=== PATIENT | male | born 1950 | race African-American/Black ===

== ENCOUNTER 2020-10-01 11:32 | Observation (INO) | payer MEDICARE ==
[2020-10-01 12:02] LABS: #Basophils 0.1 thou/uL (0.0-0.2); #Eosinphils 0.2 thou/uL (0.0-0.7); #Lymphocytes 1.4 thou/uL (1.20-3.40); #Monocytes 0.5 thou/uL (0.11-0.59); #Neutrophils 3.3 thou/uL (1.40-6.50); %Basophils 1.3 % (0.0-1.0); %Eosinophils 3.6 % (0.0-10.0); %Lymphocytes 25.5 % (21.0-51.0); %Monocytes 9.3 % (0.0-10.0); %Neutrophils 60.3 % (42.0-75.0); Hemoglobin 14.3 g/dL (14.0-18.0); Mean Corpuscular HGB CONC 33.1 g/dL (32.0-36.0); Mean Corpuscular Hemoglobin 27.9 pg (27.0-31.0); Mean Corpuscular Volume 84.3 fL (78.0-98.0); Mean Platelet Volume 9.1 fL (7.4-10.4); Platelet Count 186 thou/uL (130-400); RBC Distribution Width 12.1 % (11.5-14.5); Red Blood Cell (RBC) Count 5.12 mill/uL (4.70-6.10); White Blood Cell (WBC) Count 5.5 thou/uL (4.8-10.8)
[2020-10-01 12:23] LABS: ALT (SGPT) Less than 7 U/L (8-55); AST (SGOT) 14 U/L (5-34); Alkaline Phosphatase 79 U/L (40-110); Anion Gap 11 mmol/L (10-20); BUN (Urea Nitrogen) 10 mg/dL (8.4-25.7); Bilirubin, Total 0.7 mg/dL (0.2-1.2); Calc. Creatinine Clearance 0 mL/min (70-130); Calcium 9.2 mg/dL (7.8-10.44); Carbon Dioxide 30 mmol/L (23-31); Chloride 101 mmol/L (98-107); Globulin 3.8 g/dL (2.4-3.5); Glucose 134 mg/dL (80-115); Potassium 3.5 mmol/L (3.5-5.1); Protein, Total 7.8 g/dL (5.8-8.1)
[2020-10-01 12:25] LABS: Sodium 138 mmol/L (136-145)
[2020-10-01] MEDS ORDERED: Nitroglycerin 2% Ointment 1 INCH/1 GM Packet ONE (13:02)
[2020-10-01] MEDS ORDERED: Furosemide 20 MG/2 ML VIAL ONE (14:22)
[2020-10-01 15:11] LABS: Bacteria/HPF None Seen HPF (None Seen); Bilirubin Negative (Negative); Blood, Urine Negative (Negative); Clarity Clear (Clear); Glucose, Urine (Dipstick) 50 mg/dL (Negative); Ketone, Urine Negative (Negative); Leukocyte Negative Leu/uL (Negative); Nitrite Negative (Negative); Protein, Urine (Dipstick) 30 mg/dL (Neg-Trace); RBC/HPF 0-3 HPF (0-3); Specific Gravity, Urine 1.012 (1.002-1.036); Squamous Epithelial None Seen HPF (0-3); WBC/HPF 0-3 HPF (0-3); pH, Urine 7.5 (5.0-9.0)
[2020-10-01 15:15] LABS: Amphetamine Not Detected (NotDetected); Barbiturates Screen Not Detected (NotDetected); Benzodiazepine Screen Not Detected (NotDetected); Cocaine Metabolite Screen Not Detected (NotDetected); Medtox Control Line Valid? VALID (VALID); Medtox Reader # READER 4; Methadone Not Detected (NotDetected); Methamphetamine Not Detected (NotDetected); Opiate Screen Not Detected (NotDetected); Oxycodone Screen Not Detected (NotDetected); Phencyclidine (PCP) Not Detected (NotDetected); THC/Cannabinoid Screen Not Detected (NotDetected); Tricyclic Screen Not Detected (NotDetected)
[2020-10-01] MEDS ORDERED: Senokot S 8.6-50 MG TAB PO PRN (15:15)
[2020-10-01] MEDS ORDERED: Ondansetron ODT 4 MG TAB PO PRN (15:15)
[2020-10-01] MEDS ORDERED: Loperamide HCl 2 MG CAP PO PRN (15:15)
[2020-10-01] MEDS ORDERED: HYDROcodone/Acetaminophen 5/325 mg Tablet PO PRN (15:15)
[2020-10-01] MEDS ORDERED: Calcium Carbonate 500 MG ChewTAB PO PRN (15:15)
[2020-10-01] MEDS ORDERED: Acetaminophen 325 MG TAB PO PRN (15:15)
[2020-10-01] MEDS ORDERED: Ondansetron PF 4 MG/2 ML Vial IVP PRN (15:15)
[2020-10-01] MEDS ORDERED: Bisacodyl 10 MG SUPP PR PRN (15:15)
[2020-10-01] MEDS ORDERED: Zolpidem Tartrate 5 MG TAB PO PRN (15:15)
[2020-10-01] MEDS ORDERED: Guaifenesin DM 100-10/5 ML UDCUP PO PRN (15:15)
[2020-10-01] MEDS ORDERED: Loratadine 10 MG TAB PO PRN (15:18)
[2020-10-01] MEDS ORDERED: Cepastat Lozenges 1 LOZ PO PRN (15:18)
[2020-10-01] MEDS ORDERED: Sodium Chloride 0.65% Nasal 44 ML BOT EA NARE PRN (15:18)
[2020-10-01] MEDS: hydrALAZINE 20 MG/ML VIAL SLOW IVP PRN (17:29)
[2020-10-01] MEDS: Carvedilol 25 MG TAB PO SCH (17:29)
[2020-10-01 17:44] VITALS: BMI 26.4
[2020-10-01] MEDS: Famotidine 20 MG TAB PO SCH (20:30)
[2020-10-01 21:18] LABS: Troponin I 0.022 ng/mL (< 0.028)
[2020-10-02 01:51] LABS: SARS-CoV-2 PCR by NAA Not Detected (NotDetected)
[2020-10-02 04:43] LABS: #Eosinphils 0.2 thou/uL (0.0-0.7); #Lymphocytes 1.4 thou/uL (1.20-3.40); #Monocytes 0.7 thou/uL (0.11-0.59); #Neutrophils 3.7 thou/uL (1.40-6.50); %Basophils 0.4 % (0.0-1.0); %Eosinophils 2.6 % (0.0-10.0); %Lymphocytes 22.7 % (21.0-51.0); %Monocytes 11.5 % (0.0-10.0); %Neutrophils 62.7 % (42.0-75.0); Hemoglobin 13.2 g/dL (14.0-18.0); Mean Corpuscular HGB CONC 32.7 g/dL (32.0-36.0); Mean Corpuscular Hemoglobin 27.4 pg (27.0-31.0); Mean Corpuscular Volume 83.6 fL (78.0-98.0); Platelet Count 181 thou/uL (130-400); Red Blood Cell (RBC) Count 4.84 mill/uL (4.70-6.10)
[2020-10-02 04:46] LABS: Hemoglobin A1c 6.6 % (4.0-6.0)
[2020-10-02 05:09] LABS: Anion Gap 14 mmol/L (10-20); BUN (Urea Nitrogen) 12 mg/dL (8.4-25.7); Calc. Creatinine Clearance 76 mL/min (70-130); Calcium 8.9 mg/dL (7.8-10.44); Carbon Dioxide 24 mmol/L (23-31); Cardiac Risk 4.9 (Less than 4.5); Chloride 103 mmol/L (98-107); Cholesterol 225 mg/dl (< 200 Desired); Glucose 106 mg/dL (80-115); HDL Cholesterol 46 mg/dL (>60 Neg Risk); LDL Cholesterol, Calculated 167 mg/dL; Potassium 3.2 mmol/L (3.5-5.1); Sodium 138 mmol/L (136-145); Triglycerides 60 mg/dL (Less than 150)
[2020-10-02] MEDS: Carvedilol 25 MG TAB PO SCH ×2 (08:58→16:21)
[2020-10-02] MEDS: Famotidine 20 MG TAB PO SCH (08:58)
[2020-10-02] MEDS ORDERED: NIFEdipine XL 60 MG TAB PO SCH (09:00)
[2020-10-02] MEDS ORDERED: Losartan 25 MG TAB PO SCH (13:00)
[2020-10-02 15:20] VITALS: TEMP 98.1
[2020-10-02] MEDS: hydrALAZINE 20 MG/ML VIAL SLOW IVP PRN (15:28)
[2020-10-02 16:11] VITALS: BP 158/77
== END 2020-10-02 16:40 | disposition home or self-care (01) ==
LOC: ERS 11:32 → 2NO 14:33
PROVIDERS: ADMIT Internal Medicine; ATTEND Internal Medicine
DX: I16.0 Hypertensive urgency (principal); I11.0 Hypertensive heart disease with heart failure; I50.9 Heart failure, unspecified; E78.00 Pure hypercholesterolemia, unspecified; E11.9 Type 2 diabetes mellitus without complications; R79.89 Other specified abnormal findings of blood chemistry; I77.810 Thoracic aortic ectasia; Z91.14 Patient's other noncompliance with medication regimen; Z79.899 Other long term (current) drug therapy; Z20.822 Contact with and (suspected) exposure to COVID-19; R60.0 Localized edema; M79.89 Other specified soft tissue disorders
CPT/HCPCS: 71045; 80048; 80053; 80061; 80306; 82962 ×2; 83036; 83880; 84443; 84484 ×2; 85025 ×2; 93005; 93971; 96374; 96375; 96376; 99285; G0378 ×3; U0003; U0005; 36415; 36416; 81003; 81015; 87635; J0360; J1940

== ENCOUNTER 2022-01-14 11:27 | Inpatient (IN) | payer MEDICARE, MEDICAID ==
[2022-01-14 13:02] LABS: #Eosinphils 0.3 thou/uL (0.0-0.7); #Lymphocytes 1.3 thou/uL (1.20-3.40); #Monocytes 0.8 thou/uL (0.11-0.59); #Neutrophils 4.5 thou/uL (1.40-6.50); %Basophils 0.3 % (0.0-1.0); %Lymphocytes 18.6 % (21.0-51.0); %Monocytes 11.5 % (0.0-10.0); %Neutrophils 64.7 % (42.0-75.0); Hemoglobin 10.6 g/dL (14.0-18.0); Mean Corpuscular HGB CONC 31.6 g/dL (32.0-36.0); Mean Corpuscular Hemoglobin 29.3 pg (27.0-31.0); Mean Corpuscular Volume 92.8 fL (78.0-98.0); Mean Platelet Volume 8.6 fL (7.4-10.4); Platelet Count 167 thou/uL (130-400); White Blood Cell (WBC) Count 6.9 thou/uL (4.8-10.8)
[2022-01-14 14:33] LABS: ALT (SGPT) 8 U/L (8-55); AST (SGOT) 11 U/L (5-34); Albumin 3.7 g/dL (3.4-4.8); Alkaline Phosphatase 56 U/L (40-110); Anion Gap 15 mmol/L (10-20); BUN (Urea Nitrogen) 11 mg/dL (8.4-25.7); Bilirubin, Total 0.4 mg/dL (0.2-1.2); Calc. Creatinine Clearance 0 mL/min (70-130); Calcium 9.2 mg/dL (7.8-10.44); Carbon Dioxide 21 mmol/L (23-31); Chloride 107 mmol/L (98-107); Estimated GFR 62; Globulin 3.2 g/dL (2.4-3.5); Glucose 257 mg/dL (80-115); Potassium 3.1 mmol/L (3.5-5.1); Protein, Total 6.9 g/dL (5.8-8.1); Sodium 140 mmol/L (136-145)
[2022-01-14] MEDS ORDERED: Aspirin Chewable 81 MG TAB ONE ×2 (14:55→15:03)
[2022-01-14] MEDS ORDERED: Ondansetron ODT 4 MG TAB PO PRN (17:11)
[2022-01-14] MEDS ORDERED: Acetaminophen 325 MG TAB PO PRN (17:11)
[2022-01-14] MEDS ORDERED: Ondansetron PF 4 MG/2 ML Vial IVP PRN (17:11)
[2022-01-14] MEDS ORDERED: Enoxaparin Sodium 40 MG/0.4 ML SYRINGE SC SCH (17:15)
[2022-01-14] MEDS ORDERED: Dextrose 5% in Water 1,000 ML IV PRN (17:50)
[2022-01-14] MEDS ORDERED: Dextrose 50% Abboject 50 ML SYRINGE SLOW IVP PRN (17:50)
[2022-01-14] MEDS ORDERED: Insulin Regular 300 UNITS/3 ML VIAL SC PRN (17:50)
[2022-01-14] MEDS ORDERED: Enoxaparin Sodium 40 MG/0.4 ML SYRINGE ONE (17:55)
[2022-01-14] MEDS: Lactated Ringer's 1,000 ML IV SCH (18:26)
[2022-01-14] MEDS: Potassium Chloride 20 MEQ in Premix Bag 1 BAG IVPB SCH (23:50)
[2022-01-14] MEDS: Famotidine 20 MG TAB PO SCH (23:50)
[2022-01-15 00:21] VITALS: BMI 20.7
[2022-01-15 01:53] LABS: Bilirubin Negative (Negative); Blood, Urine Trace (Negative); Clarity Turbid (Clear); Glucose, Urine (Dipstick) Normal (Negative); Ketone, Urine Negative (Negative); Leukocyte 500 Leu/uL (Negative); Nitrite Negative (Negative); Protein, Urine (Dipstick) 20 mg/dL (Neg-Trace); Specific Gravity, Urine 1.011 (1.002-1.036); Squamous Epithelial 0-3 HPF (0-3); WBC/HPF Greater than 50 HPF (0-3)
[2022-01-15 01:54] LABS: Bacteria/HPF 1+ HPF (None Seen)
[2022-01-15] MEDS: Potassium Chloride 20 MEQ in Premix Bag 1 BAG IVPB SCH (02:08)
[2022-01-15 05:41] LABS: Hemoglobin A1c 5.7 % (4.0-6.0)
[2022-01-15 05:57] LABS: ALT (SGPT) 7 U/L (8-55); AST (SGOT) 11 U/L (5-34); Albumin 3.5 g/dL (3.4-4.8); Alkaline Phosphatase 55 U/L (40-110); Anion Gap 12 mmol/L (10-20); BUN (Urea Nitrogen) 11 mg/dL (8.4-25.7); Bilirubin, Total 0.7 mg/dL (0.2-1.2); Calc. Creatinine Clearance 70 mL/min (70-130); Calcium 9.2 mg/dL (7.8-10.44); Carbon Dioxide 24 mmol/L (23-31); Cardiac Risk 3.1 (Less than 4.5); Chloride 109 mmol/L (98-107); Cholesterol 114 mg/dl (< 200 Desired); Estimated GFR 83; Globulin 3.1 g/dL (2.4-3.5); Glucose 92 mg/dL (80-115); HDL Cholesterol 37 mg/dL (>60 Neg Risk); Iron 49 ug/dL (65-175); Iron Binding Capacity, Total 171 mcg/dL (261-462); LDL Cholesterol, Calculated 67 mg/dL; Potassium 3.4 mmol/L (3.5-5.1); Protein, Total 6.6 g/dL (5.8-8.1); Sodium 142 mmol/L (136-145); Triglycerides 52 mg/dL (Less than 150)
[2022-01-15 05:59] LABS: Iron 48 ug/dL (65-175); Iron Binding Capacity, Total 171 mcg/dL (261-462)
[2022-01-15 06:17] LABS: Ferritin 658.06 ng/mL (22-322); Thyroid Stimulating Hormone 0.7341 uIU/mL (0.35-4.94)
[2022-01-15 06:20] LABS: #Eosinphils 0.4 thou/uL (0.0-0.7); #Lymphocytes 1.6 thou/uL (1.20-3.40); #Monocytes 0.8 thou/uL (0.11-0.59); %Basophils 1.1 % (0.0-1.0); %Lymphocytes 23.3 % (21.0-51.0); %Monocytes 10.1 % (0.0-10.0); %Neutrophils 58.3 % (42.0-75.0); Hemoglobin 10.6 g/dL (14.0-18.0); Mean Corpuscular HGB CONC 33.1 g/dL (32.0-36.0); Mean Corpuscular Hemoglobin 29.8 pg (27.0-31.0); Mean Corpuscular Volume 89.8 fL (78.0-98.0); Mean Platelet Volume 8.6 fL (7.4-10.4); Platelet Count 168 thou/uL (130-400); RBC Distribution Width 11.9 % (11.5-14.5); Red Blood Cell (RBC) Count 3.55 mill/uL (4.70-6.10)
[2022-01-15] MEDS: Lactated Ringer's 1,000 ML IV SCH (08:21)
[2022-01-15] MEDS ORDERED: Aspirin 300 MG Suppository PR SCH (09:00)
[2022-01-15] MEDS: Famotidine 20 MG TAB PO SCH (09:18)
[2022-01-15] MEDS ORDERED: Potassium Chloride 20 MEQ TAB PO SCH (12:30)
[2022-01-15] MEDS ORDERED: Multivitamin W/ Minerals 1 TAB PO SCH (14:15)
[2022-01-15] MEDS: hydrALAZINE 25 MG TAB PO SCH ×2 (15:11→21:09)
[2022-01-15] MEDS: Megestrol Acetate 40 MG TAB PO SCH ×2 (15:12→21:09)
[2022-01-15] MEDS: Ferrous Sulfate 325 MG TAB PO SCH (17:47)
[2022-01-15] MEDS: HumaLOG 300 UNITS/3 ML VIAL SC PRN (17:47)
[2022-01-15] MEDS ORDERED: Non-Formulary Item 1 EACH (Levetiracetam [Keppra] 250 MG Tab) PO SCH (21:00)
[2022-01-15] MEDS ORDERED: Non-Formulary Item 1 EACH (Quetiapine Fumarate [Seroquel] 50 MG Tablet) PO SCH (21:00)
[2022-01-15] MEDS: traZODone HCl 50 MG TAB PO SCH (21:08)
[2022-01-15] MEDS: levETIRAcetam 500 MG TAB PO SCH (21:09)
[2022-01-16] MEDS ORDERED: glipiZIDE 5 MG TAB PO SCH (07:30)
[2022-01-16] MEDS: levETIRAcetam 500 MG TAB PO SCH ×2 (08:42→21:47)
[2022-01-16] MEDS: Atorvastatin Calcium 40 MG TAB PO SCH (08:43)
[2022-01-16] MEDS: hydrALAZINE 25 MG TAB PO SCH ×3 (08:43→21:48)
[2022-01-16] MEDS: Citalopram 20 MG TAB PO SCH (08:43)
[2022-01-16] MEDS: Multivitamin W/ Minerals 1 TAB PO SCH (08:43)
[2022-01-16] MEDS: Furosemide 20 MG TAB PO SCH (08:43)
[2022-01-16] MEDS: Lisinopril 20 MG TAB PO SCH (08:44)
[2022-01-16] MEDS: NIFEdipine XL 90 MG TAB PO SCH (08:44)
[2022-01-16] MEDS: Megestrol Acetate 40 MG TAB PO SCH ×3 (08:44→21:47)
[2022-01-16] MEDS: Folic Acid 1 MG TAB PO SCH (08:45)
[2022-01-16] MEDS: Donepezil HCl 10 MG TAB PO SCH (08:45)
[2022-01-16] MEDS: Aspirin Chewable 81 MG TAB PO SCH (08:45)
[2022-01-16] MEDS: Alogliptin 25 MG TAB PO SCH (08:45)
[2022-01-16] MEDS ORDERED: Lisinopril 20 MG TAB PO SCH (09:00)
[2022-01-16] MEDS ORDERED: NIFEdipine XL 90 MG TAB PO SCH (09:00)
[2022-01-16] MEDS ORDERED: Non-Formulary Item 1 EACH (Lisinopril [Lisinopril] 40 MG Tablet) PO SCH (09:00)
[2022-01-16] MEDS ORDERED: DONEPEZIL HCL 10 MG PO SCH (09:00)
[2022-01-16] MEDS ORDERED: Non-Formulary Item 1 EACH (Linagliptin [Tradjenta] 5 MG Tablet) PO SCH (09:00)
[2022-01-16] MEDS: Enoxaparin Sodium 40 MG/0.4 ML SYRINGE SC SCH (10:15)
[2022-01-16] MEDS ORDERED: cefTRIAXone\\ROCEPHIN 1 GM in Sodium Chloride 0.9% 100 ML IVPB SCH (12:00)
[2022-01-16] MEDS: HumaLOG 300 UNITS/3 ML VIAL SC PRN (13:18)
[2022-01-16] MEDS: traZODone HCl 50 MG TAB PO SCH (21:46)
[2022-01-17 07:22] LABS: Anion Gap 12 mmol/L (10-20); BUN (Urea Nitrogen) 9 mg/dL (8.4-25.7); Calc. Creatinine Clearance 76 mL/min (70-130); Calcium 8.4 mg/dL (7.8-10.44); Carbon Dioxide 24 mmol/L (23-31); Chloride 107 mmol/L (98-107); Estimated GFR 92; Glucose 87 mg/dL (80-115); Potassium 3.3 mmol/L (3.5-5.1); Sodium 140 mmol/L (136-145)
[2022-01-17] MEDS ORDERED: Potassium Chloride 20 MEQ TAB PO SCH (08:15)
[2022-01-17] MEDS: Enoxaparin Sodium 40 MG/0.4 ML SYRINGE SC SCH (08:44)
[2022-01-17] MEDS: levETIRAcetam 500 MG TAB PO SCH ×2 (08:44→21:47)
[2022-01-17] MEDS: Donepezil HCl 10 MG TAB PO SCH (08:45)
[2022-01-17] MEDS: Multivitamin W/ Minerals 1 TAB PO SCH (08:45)
[2022-01-17] MEDS: Atorvastatin Calcium 40 MG TAB PO SCH (08:45)
[2022-01-17] MEDS: Lisinopril 20 MG TAB PO SCH (08:45)
[2022-01-17] MEDS: Aspirin Chewable 81 MG TAB PO SCH (08:45)
[2022-01-17] MEDS: Folic Acid 1 MG TAB PO SCH (08:45)
[2022-01-17] MEDS: Megestrol Acetate 40 MG TAB PO SCH ×3 (08:45→21:50)
[2022-01-17] MEDS: Furosemide 20 MG TAB PO SCH (08:45)
[2022-01-17] MEDS: NIFEdipine XL 90 MG TAB PO SCH (08:46)
[2022-01-17] MEDS: Alogliptin 25 MG TAB PO SCH (08:46)
[2022-01-17] MEDS: Citalopram 20 MG TAB PO SCH (08:46)
[2022-01-17] MEDS: hydrALAZINE 25 MG TAB PO SCH ×3 (08:47→21:47)
[2022-01-17] MEDS ORDERED: Iopamidol-370 76% 500 ML 1 ML ONE (13:43)
[2022-01-17] MEDS: cefTRIAXone\\ROCEPHIN 1 GM in Sodium Chloride 0.9% 100 ML IVPB SCH (16:47)
[2022-01-17] MEDS: Ferrous Sulfate 325 MG TAB PO SCH (16:47)
[2022-01-17] MEDS: traZODone HCl 50 MG TAB PO SCH (21:47)
[2022-01-18 05:42] LABS: Anion Gap 11 mmol/L (10-20); BUN (Urea Nitrogen) 11 mg/dL (8.4-25.7); Calc. Creatinine Clearance 79 mL/min (70-130); Calcium 8.8 mg/dL (7.8-10.44); Carbon Dioxide 25 mmol/L (23-31); Chloride 108 mmol/L (98-107); Estimated GFR 93; Glucose 81 mg/dL (80-115); Potassium 3.8 mmol/L (3.5-5.1); Sodium 140 mmol/L (136-145)
[2022-01-18 06:36] LABS: Hemoglobin 9.5 g/dL (14.0-18.0); Mean Corpuscular HGB CONC 33.1 g/dL (32.0-36.0); Mean Corpuscular Hemoglobin 29.5 pg (27.0-31.0); Mean Corpuscular Volume 89.1 fL (78.0-98.0); Mean Platelet Volume 8.7 fL (7.4-10.4); Platelet Count 166 thou/uL (130-400); RBC Distribution Width 11.8 % (11.5-14.5); White Blood Cell (WBC) Count 7.6 thou/uL (4.8-10.8)
[2022-01-18] MEDS: Alogliptin 25 MG TAB PO SCH (08:22)
[2022-01-18] MEDS: Enoxaparin Sodium 40 MG/0.4 ML SYRINGE SC SCH (08:22)
[2022-01-18] MEDS: Folic Acid 1 MG TAB PO SCH (08:22)
[2022-01-18] MEDS: hydrALAZINE 25 MG TAB PO SCH ×3 (08:23→20:10)
[2022-01-18] MEDS: Donepezil HCl 10 MG TAB PO SCH (08:23)
[2022-01-18] MEDS: Atorvastatin Calcium 40 MG TAB PO SCH (08:23)
[2022-01-18] MEDS: levETIRAcetam 500 MG TAB PO SCH ×2 (08:23→20:10)
[2022-01-18] MEDS: Multivitamin W/ Minerals 1 TAB PO SCH (08:23)
[2022-01-18] MEDS: Furosemide 20 MG TAB PO SCH (08:24)
[2022-01-18] MEDS: Citalopram 20 MG TAB PO SCH (08:24)
[2022-01-18] MEDS: Megestrol Acetate 40 MG TAB PO SCH ×3 (08:24→20:10)
[2022-01-18] MEDS: NIFEdipine XL 90 MG TAB PO SCH (08:24)
[2022-01-18] MEDS: Lisinopril 20 MG TAB PO SCH (08:24)
[2022-01-18] MEDS: Aspirin Chewable 81 MG TAB PO SCH (08:24)
[2022-01-18] MEDS: cefTRIAXone\\ROCEPHIN 1 GM in Sodium Chloride 0.9% 100 ML IVPB SCH (14:49)
[2022-01-18] MEDS: traZODone HCl 50 MG TAB PO SCH (20:10)
[2022-01-19 05:40] LABS: Anion Gap 12 mmol/L (10-20); BUN (Urea Nitrogen) 12 mg/dL (8.4-25.7); Calc. Creatinine Clearance 81 mL/min (70-130); Calcium 8.5 mg/dL (7.8-10.44); Carbon Dioxide 24 mmol/L (23-31); Chloride 107 mmol/L (98-107); Estimated GFR 94; Glucose 121 mg/dL (80-115); Potassium 3.5 mmol/L (3.5-5.1); Sodium 139 mmol/L (136-145)
[2022-01-19] MEDS: Aspirin Chewable 81 MG TAB PO SCH (08:18)
[2022-01-19] MEDS: Enoxaparin Sodium 40 MG/0.4 ML SYRINGE SC SCH (08:18)
[2022-01-19] MEDS: Folic Acid 1 MG TAB PO SCH (08:18)
[2022-01-19] MEDS: Citalopram 20 MG TAB PO SCH (08:19)
[2022-01-19] MEDS: levETIRAcetam 500 MG TAB PO SCH (08:19)
[2022-01-19] MEDS: Donepezil HCl 10 MG TAB PO SCH (08:19)
[2022-01-19] MEDS: Lisinopril 20 MG TAB PO SCH (08:19)
[2022-01-19] MEDS: Multivitamin W/ Minerals 1 TAB PO SCH (08:20)
[2022-01-19] MEDS: Megestrol Acetate 40 MG TAB PO SCH ×2 (08:20→14:13)
[2022-01-19] MEDS: NIFEdipine XL 90 MG TAB PO SCH (08:20)
[2022-01-19] MEDS: hydrALAZINE 25 MG TAB PO SCH ×2 (08:20→14:13)
[2022-01-19] MEDS: Alogliptin 25 MG TAB PO SCH (08:20)
[2022-01-19] MEDS: Atorvastatin Calcium 40 MG TAB PO SCH (08:20)
[2022-01-19] MEDS: Furosemide 20 MG TAB PO SCH (08:20)
[2022-01-19 08:55] LABS: #Eosinphils 0.6 thou/uL (0.0-0.7); #Lymphocytes 1.7 thou/uL (1.20-3.40); #Monocytes 0.7 thou/uL (0.11-0.59); #Neutrophils 3.3 thou/uL (1.40-6.50); %Basophils 0.4 % (0.0-1.0); %Eosinophils 9.1 % (0.0-10.0); %Lymphocytes 26.7 % (21.0-51.0); %Monocytes 11.1 % (0.0-10.0); %Neutrophils 52.7 % (42.0-75.0); Hemoglobin 8.9 g/dL (14.0-18.0); Mean Corpuscular HGB CONC 33.5 g/dL (32.0-36.0); Mean Corpuscular Hemoglobin 29.3 pg (27.0-31.0); Mean Corpuscular Volume 87.6 fL (78.0-98.0); Mean Platelet Volume 8.3 fL (7.4-10.4); Platelet Count 146 thou/uL (130-400); RBC Distribution Width 11.7 % (11.5-14.5); Red Blood Cell (RBC) Count 3.03 mill/uL (4.70-6.10); White Blood Cell (WBC) Count 6.2 thou/uL (4.8-10.8)
[2022-01-19 12:08] VITALS: TEMP 98.7
[2022-01-19 16:18] VITALS: BP 132/78
== END 2022-01-19 16:45 | DRG 57 ==
LOC: ERS 11:27 → ERHOLD 15:05 → NEURO 22:35
PROVIDERS: ADMIT Family Medicine; ATTEND Family Medicine
DX: I69.354 Hemiplegia and hemiparesis following cerebral infarction affecting left non-dominant side (principal); I50.32 Chronic diastolic (congestive) heart failure; N39.0 Urinary tract infection, site not specified; E44.0 Moderate protein-calorie malnutrition; Z20.822 Contact with and (suspected) exposure to COVID-19; I69.398 Other sequelae of cerebral infarction; I69.391 Dysphagia following cerebral infarction; R26.89 Other abnormalities of gait and mobility; B96.20 Unspecified Escherichia coli [E. coli] as the cause of diseases classified elsewhere; I08.3 Combined rheumatic disorders of mitral, aortic and tricuspid valves; R13.10 Dysphagia, unspecified; F03.90 Unspecified dementia, unspecified severity, without behavioral disturbance, psychotic disturbance, mood disturbance, and anxiety; I11.0 Hypertensive heart disease with heart failure; E11.9 Type 2 diabetes mellitus without complications; G40.909 Epilepsy, unspecified, not intractable, without status epilepticus; E87.6 Hypokalemia; D63.1 Anemia in chronic kidney disease; E78.5 Hyperlipidemia, unspecified; F31.9 Bipolar disorder, unspecified; F20.9 Schizophrenia, unspecified; R79.89 Other specified abnormal findings of blood chemistry; D63.8 Anemia in other chronic diseases classified elsewhere; Z79.899 Other long term (current) drug therapy; Z79.82 Long term (current) use of aspirin; Z68.20 Body mass index [BMI] 20.0-20.9, adult
CPT/HCPCS: 36415; 36416; 70450; 70470; 71045; 80048; 80053; 80061; 80177; 81001; 82728; 83036; 83540; 83550; 84443; 84484; 85025; 85027; 87077; 87086; 87186; 93005; 93306; 93880; J0696; J1650; J1815; J3480; J3490; J7120; Q9967; S0179; U0003; U0005

== ENCOUNTER 2023-09-10 17:06 | Emergency (ER) | payer MEDICARE, MEDICAID ==
[2023-09-10] MEDS ORDERED: Haloperidol Lactate 5 MG/ML VIAL ONE (17:17)
[2023-09-10] MEDS ORDERED: LORazepam 2 MG/ML SYR.(CARPUJECT) ONE (17:18)
[2023-09-10 17:47] LABS: #Eosinphils 0.2 thou/uL (0.0-0.7); #Monocytes 0.7 thou/uL (0.11-0.59); #Neutrophils 5.5 thou/uL (1.40-6.50); %Basophils 0.4 % (0.0-1.0); %Lymphocytes 16.4 % (21.0-51.0); %Monocytes 9.3 % (0.0-10.0); %Neutrophils 71.8 % (42.0-75.0); Hematocrit 40.4 % (42.0-52.0); Hemoglobin 13.8 g/dL (14.0-18.0); Mean Corpuscular HGB CONC 34.2 g/dL (32.0-36.0); Mean Corpuscular Hemoglobin 29.6 pg (27.0-31.0); Mean Corpuscular Volume 86.7 fl (78.0-98.0); Mean Platelet Volume 10.6 fL (7.4-10.4); Platelet Count 160 10x3/uL (130-400); RBC Distribution Width 12.2 % (11.5-14.5); Red Blood Cell (RBC) Count 4.66 mill/uL (4.70-6.10); White Blood Cell (WBC) Count 7.6 10x3/uL (4.8-10.8)
[2023-09-10 18:09] LABS: Troponin I Less than 0.010 ng/mL (< 0.028)
[2023-09-10 18:10] LABS: Acetaminophen Less than 10 mcg/mL (10.0-30.0); Alcohol Less than 10.0 mg/dL (Less than 10); Lipase 56 U/L (8-78); Salicylate Less than 8.0 mg/dL (15.0-30.0)
[2023-09-10 18:13] LABS: ALT (SGPT) 45 U/L (8-55); AST (SGOT) 30 U/L (5-34); Albumin 4.4 g/dL (3.4-4.8); Alkaline Phosphatase 80 U/L (40-110); Anion Gap 17 mmol/L (10-20); BUN (Urea Nitrogen) 13 mg/dL (8.4-25.7); Bilirubin, Total 0.6 mg/dL (0.2-1.2); CK (CPK) 89 U/L (30-200); Calc. Creatinine Clearance 0 mL/min (70-130); Calcium 9.8 mg/dL (7.8-10.44); Carbon Dioxide 24 mmol/L (23-31); Chloride 103 mmol/L (98-107); Estimated GFR 70; Globulin 3.4 g/dL (2.4-3.5); Glucose 132 mg/dL (83-110); Potassium 3.5 mmol/L (3.5-5.1); Protein, Total 7.8 g/dL (5.8-8.1); Sodium 140 mmol/L (136-145)
[2023-09-10 18:25] LABS: Bacteria/HPF None Seen HPF (None Seen); Bilirubin Negative (Negative); Blood, Urine Negative (Negative); CAUTI Indications for Culture Alt mental st,lethar; Clarity Clear (Clear); Glucose, Urine (Dipstick) Normal (Negative); Ketone, Urine Negative (Negative); Leukocyte Negative Leu/uL (Negative); Nitrite Negative (Negative); Protein, Urine (Dipstick) 50 mg/dL (Neg-Trace); RBC/HPF 0-3 HPF (0-3); Specific Gravity, Urine 1.017 (1.002-1.036); Squamous Epithelial 0-3 HPF (0-3); Urobilinogen Normal mg/dL (Less than 2); WBC/HPF 0-3 HPF (0-3)
[2023-09-10 18:26] LABS: Urine Culture Reflex No No
[2023-09-10 18:31] LABS: Amphetamine Not Detected (NotDetected); Barbiturates Screen Not Detected (NotDetected); Benzodiazepine Screen Not Detected (NotDetected); Cocaine Metabolite Screen Not Detected (NotDetected); Methadone Not Detected (NotDetected); Methamphetamine Not Detected (NotDetected); Opiate Screen Not Detected (NotDetected); Oxycodone Screen Not Detected (NotDetected); Phencyclidine (PCP) Not Detected (NotDetected); THC/Cannabinoid Screen Not Detected (NotDetected); Tricyclic Screen Not Detected (NotDetected)
[2023-09-10 19:02] LABS: Influenza A by NAA Not Detected (NotDetected); Influenza B by NAA Not Detected (NotDetected); SARS-CoV-2 NAA Rapid Test Not Detected (NotDetected)
== END 2023-09-10 19:32 | disposition home or self-care (01) ==
LOC: ERS 17:06
DX: R41.82 Altered mental status, unspecified (principal); I11.0 Hypertensive heart disease with heart failure; I50.9 Heart failure, unspecified; E78.5 Hyperlipidemia, unspecified; E11.9 Type 2 diabetes mellitus without complications; Z79.899 Other long term (current) drug therapy; Z79.82 Long term (current) use of aspirin
CPT/HCPCS: 0240U; 51701; 70450; 71045; 80177; 80306; 80307; 81001; 82140; 82550; 83690; 84484; 93005; 96361; 96374; 96375; 99285; J2060; 36415; 80053; 84443; 85025; J1630

== ENCOUNTER 2024-08-07 19:25 | Inpatient (IN) | payer MEDICAID, MEDICARE ==
[2024-08-07 20:08] LABS: #Basophils 0.04 10x3/uL (0.0-0.2); #Eosinophils Less than 0.03 10x3/uL (0.0-0.7); %Basophils 0.6 % (0.0-1.0); %Eosinophils 0.3 % (0.0-10.0); %Lymphocytes 14.3 % (21.0-51.0); %Monocytes 10.5 % (0.0-10.0); Hematocrit 41.8 % (42.0-52.0); Mean Corpuscular HGB CONC 33.5 g/dL (32.0-36.0); Mean Corpuscular Hemoglobin 28.1 pg (27.0-31.0); Mean Corpuscular Volume 83.9 fL (78.0-98.0); Mean Platelet Volume 10.6 fL (7.4-10.4); Platelet Count 177 10x3/uL (130-400); RBC Distribution Width 12.4 % (11.5-14.5); Red Blood Cell (RBC) Count 4.98 mill/uL (4.70-6.10)
[2024-08-07 20:15] LABS: Bacteria/HPF None Seen HPF (None Seen); Bilirubin Negative (Negative); Blood, Urine 2+ (Negative); CAUTI Indications for Culture Alt mental st,lethar; Clarity Clear (Clear); Glucose, Urine (Dipstick) Normal (Negative); Ketone, Urine Negative (Negative); Leukocyte Negative Leu/uL (Negative); Nitrite Negative (Negative); Protein, Urine (Dipstick) 300 mg/dL (Neg-Trace); Specific Gravity, Urine 1.019 (1.002-1.036); Squamous Epithelial 0-3 HPF (0-3); Urobilinogen Normal mg/dL (Less than 2); WBC/HPF 21-50 HPF (0-3)
[2024-08-07 20:17] LABS: Urine Culture Reflex Yes Yes
[2024-08-07 20:20] LABS: Lipase 49 U/L (8-78)
[2024-08-07 20:21] LABS: Amphetamine Not Detected (NotDetected); Barbiturates Screen Not Detected (NotDetected); Benzodiazepine Screen Not Detected (NotDetected); Cocaine Metabolite Screen Not Detected (NotDetected); Methadone Not Detected (NotDetected); Methamphetamine Not Detected (NotDetected); Opiate Screen Not Detected (NotDetected); Oxycodone Screen Not Detected (NotDetected); Phencyclidine (PCP) Not Detected (NotDetected); THC/Cannabinoid Screen Not Detected (NotDetected); Tricyclic Screen Detected (NotDetected)
[2024-08-07 20:23] LABS: Acetaminophen Less than 10 mcg/mL (Less than 10); Alcohol Less than 10.0 mg/dL (Less than 10); Salicylate Less than 8.0 mg/dL (Less than 8.0)
[2024-08-07 20:24] LABS: ALT (SGPT) 10 U/L (Less than 45); AST (SGOT) 37 U/L (11-34); Albumin 4.2 g/dL (3.1-4.5); Alkaline Phosphatase 90 U/L (40-110); Anion Gap 19 mmol/L (10-20); BUN (Urea Nitrogen) 13 mg/dL (8.4-25.7); Bilirubin, Total 0.5 mg/dL (0.3-1.2); Calc. Creatinine Clearance 0 mL/min (70-130); Calcium 9.6 mg/dL (7.8-10.44); Carbon Dioxide 21 mmol/L (23-31); Chloride 102 mmol/L (98-107); Estimated GFR 83; Globulin 4.4 g/dL (2.4-3.5); Glucose 139 mg/dL (83-110); Potassium 5.3 mmol/L (3.5-5.1); Protein, Total 8.6 g/dL (5.8-8.1); Sodium 137 mmol/L (136-145)
[2024-08-07 21:05] LABS: Troponin I 0.063 ng/mL (< 0.028)
[2024-08-07] MEDS ORDERED: LORazepam 2 MG/ML SYR.(CARPUJECT) ONE (21:24)
[2024-08-07] MEDS ORDERED: Nitroglycerin 2% Ointment 1 INCH/1 GM Packet ONE (21:27)
[2024-08-07] MEDS ORDERED: Aspirin 300 MG Suppository ONE (21:43)
[2024-08-07] MEDS ORDERED: hydrALAZINE 20 MG/ML VIAL SLOW IVP PRN (21:52)
[2024-08-07] MEDS ORDERED: Acetaminophen 650 MG Suppository PR PRN (21:52)
[2024-08-07] MEDS ORDERED: Acetaminophen 325 MG TAB PO PRN (21:52)
[2024-08-07] MEDS ORDERED: Ondansetron PF 4 MG/2 ML Vial IVP PRN (21:52)
[2024-08-07] MEDS ORDERED: Ondansetron ODT 4 MG TAB PO PRN (21:52)
[2024-08-07] MEDS ORDERED: Nitroglycerin 0.4 MG TAB (25 Tab Bottle) SL PRN (22:14)
[2024-08-07] MEDS ORDERED: traZODone HCl 50 MG TAB PO PRN (23:06)
[2024-08-07] MEDS ORDERED: Lorazepam 2 MG/ML VIAL SLOW IVP PRN (23:14)
[2024-08-07] MEDS ORDERED: Dextrose 50% Abboject 50 ML SYRINGE SLOW IVP PRN (23:14)
[2024-08-07] MEDS ORDERED: Insulin Lispro 100 UNIT/ML 10 ML VIAL SC PRN (23:14)
[2024-08-07] MEDS ORDERED: Dextrose 5% in Water 1,000 ML IV PRN (23:14)
[2024-08-07] MEDS ORDERED: Glucagon 1 MG/ML KIT IM PRN (23:14)
[2024-08-08] MEDS: cefTRIAXone\\ROCEPHIN 1 GM in Sodium Chloride 0.9% 100 ML IVPB SCH (01:24)
[2024-08-08 01:49] VITALS: BMI 22.0
[2024-08-08] MEDS: Donepezil HCl 10 MG TAB PO SCH ×2 (02:29→20:47)
[2024-08-08] MEDS: levETIRAcetam 500 MG TAB PO SCH ×3 (02:30→11:48)
[2024-08-08 03:07] LABS: Lactic Acid 1.55 mmol/L (0.50-2.20)
[2024-08-08 03:11] LABS: Troponin I 0.056 ng/mL (< 0.028)
[2024-08-08] MEDS: Lorazepam 2 MG/ML VIAL SLOW IVP SCH (03:30)
[2024-08-08 04:52] LABS: Anion Gap 17 mmol/L (10-20); BUN (Urea Nitrogen) 13 mg/dL (8.4-25.7); Calc. Creatinine Clearance 71 mL/min (70-130); Calcium 8.8 mg/dL (7.8-10.44); Carbon Dioxide 23 mmol/L (23-31); Cardiac Risk 4.2 (Less than 4.5); Chloride 106 mmol/L (98-107); Cholesterol 191 mg/dl (< 200 Desired); Estimated GFR 91; Glucose 93 mg/dL (83-110); HDL Cholesterol 46 mg/dL (>60 Neg Risk); LDL Cholesterol, Calculated 135 mg/dL; Potassium 3.9 mmol/L (3.5-5.1); Sodium 142 mmol/L (136-145); Triglycerides 48 mg/dL (Less than 150)
[2024-08-08 04:55] LABS: Troponin I 0.052 ng/mL (< 0.028)
[2024-08-08 06:38] LABS: Magnesium 1.8 mg/dL (1.6-2.6)
[2024-08-08] MEDS: Divalproex Sodium 125 mg Sprinkle Capsule PO SCH ×2 (11:38→11:47)
[2024-08-08] MEDS: QUEtiapine 25 MG TAB PO SCH ×3 (11:38→20:47)
[2024-08-08] MEDS: hydrALAZINE 25 MG TAB PO SCH (11:38)
[2024-08-08] MEDS: levETIRAcetam 500 mg/5 ml Oral Solution PO SCH ×2 (11:38→20:47)
[2024-08-08] MEDS: Amlodipine 5 MG TAB PO SCH (11:39)
[2024-08-08] MEDS: Citalopram 10 MG TAB PO SCH ×2 (11:39→11:47)
[2024-08-08] MEDS: Aspirin Chewable 81 MG TAB PO SCH (11:39)
[2024-08-08] MEDS: Lisinopril 20 MG TAB PO SCH (11:39)
[2024-08-08] MEDS: Furosemide 20 MG TAB PO SCH (11:39)
[2024-08-08] MEDS: Aspirin 300 MG Suppository PR SCH (11:48)
[2024-08-08] MEDS: Enoxaparin 40 MG (0.4 mL) SYRINGE SC SCH (11:50)
[2024-08-08] MEDS: FLU (Fluad Triv) TS24-25 (65UP)/MF59C/PF 45 MCG/0.5 ML Syringe IM ONE (11:51)
[2024-08-08] MEDS: traZODone HCl 50 MG TAB PO SCH (20:47)
[2024-08-08] MEDS: Atorvastatin Calcium 40 MG TAB PO SCH (20:47)
[2024-08-08] MEDS: Labetalol HCl 100 MG/20 ML VIAL SLOW IVP PRN (20:55)
[2024-08-08] MEDS ORDERED: Donepezil HCl 10 MG TAB PO SCH (21:00)
[2024-08-08] MEDS: hydrALAZINE 20 MG/ML VIAL SLOW IVP PRN (23:25)
[2024-08-09] MEDS ORDERED: Citalopram 20 MG TAB PO SCH (09:00)
[2024-08-09] MEDS: Citalopram 10 MG TAB PO SCH (09:29)
[2024-08-09] MEDS: Lisinopril 20 MG TAB PO SCH (09:29)
[2024-08-09] MEDS: Divalproex Sodium 125 mg Sprinkle Capsule PO SCH (09:29)
[2024-08-09] MEDS: Furosemide 20 MG TAB PO SCH (09:29)
[2024-08-09] MEDS: hydrALAZINE 25 MG TAB PO SCH ×2 (09:47→20:22)
[2024-08-09] MEDS: Amlodipine 5 MG TAB PO SCH (09:47)
[2024-08-09] MEDS: Aspirin Chewable 81 MG TAB PO SCH (09:47)
[2024-08-09] MEDS ORDERED: Lorazepam 2 MG/ML VIAL SLOW IVP PRN (10:15)
[2024-08-11 06:04] LABS: #Basophils 0.03 10x3/uL (0.0-0.2); %Basophils 0.6 % (0.0-1.0); %Eosinophils 3.8 % (0.0-10.0); %Monocytes 16.3 % (0.0-10.0); %Neutrophils 48.1 % (42.0-75.0); Hematocrit 38.8 % (42.0-52.0); Hemoglobin 12.9 g/dL (14.0-18.0); Mean Corpuscular HGB CONC 33.2 g/dL (32.0-36.0); Mean Corpuscular Hemoglobin 28.4 pg (27.0-31.0); Mean Corpuscular Volume 85.3 fL (78.0-98.0); Mean Platelet Volume 10.6 fL (7.4-10.4); Platelet Count 168 10x3/uL (130-400); RBC Distribution Width 12.6 % (11.5-14.5); Red Blood Cell (RBC) Count 4.55 mill/uL (4.70-6.10)
[2024-08-11 06:17] LABS: Anion Gap 13 mmol/L (10-20); BUN (Urea Nitrogen) 26 mg/dL (8.4-25.7); Calc. Creatinine Clearance 47 mL/min (70-130); Calcium 8.9 mg/dL (7.8-10.44); Carbon Dioxide 27 mmol/L (23-31); Chloride 106 mmol/L (98-107); Estimated GFR 57; Glucose 131 mg/dL (83-110); Potassium 3.4 mmol/L (3.5-5.1); Sodium 143 mmol/L (136-145)
[2024-08-12 04:14] LABS: #Basophils 0.03 10x3/uL (0.0-0.2); %Basophils 0.5 % (0.0-1.0); %Lymphocytes 25.4 % (21.0-51.0); %Monocytes 12.3 % (0.0-10.0); %Neutrophils 57.6 % (42.0-75.0); Hematocrit 37.2 % (42.0-52.0); Hemoglobin 12.1 g/dL (14.0-18.0); Mean Corpuscular HGB CONC 32.5 g/dL (32.0-36.0); Mean Corpuscular Hemoglobin 28.3 pg (27.0-31.0); Mean Corpuscular Volume 86.9 fL (78.0-98.0); Mean Platelet Volume 10.5 fL (7.4-10.4); Platelet Count 157 10x3/uL (130-400); RBC Distribution Width 12.4 % (11.5-14.5); Red Blood Cell (RBC) Count 4.28 mill/uL (4.70-6.10)
[2024-08-12 04:28] LABS: Anion Gap 12 mmol/L (10-20); BUN (Urea Nitrogen) 29 mg/dL (8.4-25.7); Calc. Creatinine Clearance 61 mL/min (70-130); Calcium 9.2 mg/dL (7.8-10.44); Carbon Dioxide 28 mmol/L (23-31); Chloride 108 mmol/L (98-107); Estimated GFR 78; Glucose 112 mg/dL (83-110); Potassium 3.7 mmol/L (3.5-5.1); Sodium 144 mmol/L (136-145)
[2024-08-12] MEDS: Insulin Lispro 100 UNIT/ML 10 ML VIAL SC PRN (13:54)
[2024-08-12 16:26] VITALS: BP 152/79; TEMP 97.6
== END 2024-08-12 20:55 | DRG 70 ==
LOC: ERS 19:25 → 2SE 21:56 → EEVIPCON 21:56
PROVIDERS: ADMIT Family Medicine; ATTEND Internal Medicine
PROC: XX20X89 Monitoring of Brain Electrical Activity, Computer-aided Detection and Notification, New Technology Group 9 (ICD-10-PCS; principal; 2024-08-07)
DX: G93.89 Other specified disorders of brain (principal); G93.41 Metabolic encephalopathy; E87.20 Acidosis, unspecified; N39.0 Urinary tract infection, site not specified; I69.354 Hemiplegia and hemiparesis following cerebral infarction affecting left non-dominant side; F03.94 Unspecified dementia, unspecified severity, with anxiety; F03.93 Unspecified dementia, unspecified severity, with mood disturbance; I50.32 Chronic diastolic (congestive) heart failure; I5A Non-ischemic myocardial injury (non-traumatic); E87.5 Hyperkalemia; Z66 Do not resuscitate; I11.0 Hypertensive heart disease with heart failure; F03.90 Unspecified dementia, unspecified severity, without behavioral disturbance, psychotic disturbance, mood disturbance, and anxiety; E78.5 Hyperlipidemia, unspecified; R29.6 Repeated falls; F25.0 Schizoaffective disorder, bipolar type; G40.909 Epilepsy, unspecified, not intractable, without status epilepticus; E11.8 Type 2 diabetes mellitus with unspecified complications
CPT/HCPCS: 36415; 36416; 51701; 70450; 71045; 80048; 80053; 80061; 80164; 80306; 80307; 81001; 82140; 82550; 82947; 83036; 83605; 83690; 83735; 84443; 84484; 85025; 87040; 87086; 93005; 94760; 95813; 96374; J0360; J0696; J1650; J1815; J2060

== ENCOUNTER 2024-08-18 10:29 | Emergency (ER) | payer MEDICARE ==
[2024-08-18 11:27] LABS: #Basophils 0.03 10x3/uL (0.0-0.2); %Basophils 0.5 % (0.0-1.0); %Eosinophils 3.9 % (0.0-10.0); %Lymphocytes 24.5 % (21.0-51.0); %Monocytes 13.1 % (0.0-10.0); %Neutrophils 57.8 % (42.0-75.0); Hemoglobin 13.2 g/dL (14.0-18.0); Mean Corpuscular HGB CONC 33.8 g/dL (32.0-36.0); Mean Corpuscular Hemoglobin 28.1 pg (27.0-31.0); Mean Corpuscular Volume 83.2 fL (78.0-98.0); Mean Platelet Volume 10.9 fL (7.4-10.4); Platelet Count 148 10x3/uL (130-400); RBC Distribution Width 11.7 % (11.5-14.5); Red Blood Cell (RBC) Count 4.69 mill/uL (4.70-6.10)
[2024-08-18] MEDS ORDERED: Lorazepam 2 MG/ML VIAL ONE (11:37)
[2024-08-18 11:46] LABS: ALT (SGPT) 14 U/L (Less than 45); AST (SGOT) 28 U/L (11-34); Albumin 3.8 g/dL (3.1-4.5); Alkaline Phosphatase 69 U/L (40-110); Anion Gap 15 mmol/L (10-20); BUN (Urea Nitrogen) 10 mg/dL (8.4-25.7); Bilirubin, Total 0.3 mg/dL (0.3-1.2); CK (CPK) 160 U/L (30-200); Calc. Creatinine Clearance 0 mL/min (70-130); Calcium 9.6 mg/dL (7.8-10.44); Carbon Dioxide 26 mmol/L (23-31); Chloride 104 mmol/L (98-107); Estimated GFR 90; Globulin 3.9 g/dL (2.4-3.5); Glucose 132 mg/dL (83-110); Potassium 3.8 mmol/L (3.5-5.1); Protein, Total 7.7 g/dL (5.8-8.1); Sodium 141 mmol/L (136-145)
[2024-08-18 11:50] LABS: Lipase 75 U/L (8-78)
[2024-08-18 11:52] LABS: Acetaminophen Less than 10 mcg/mL (Less than 10); Alcohol Less than 10.0 mg/dL (Less than 10); Salicylate Less than 8.0 mg/dL (Less than 8.0)
[2024-08-18 11:58] LABS: Troponin I 0.026 ng/mL (< 0.028)
[2024-08-18 15:33] LABS: Bacteria/HPF None Seen HPF (None Seen); Bilirubin Negative (Negative); Blood, Urine 1+ (Negative); CAUTI Indications for Culture Alt mental st,lethar; Clarity Clear (Clear); Glucose, Urine (Dipstick) Normal (Negative); Ketone, Urine Negative (Negative); Leukocyte Negative Leu/uL (Negative); Nitrite Negative (Negative); Protein, Urine (Dipstick) Negative (Neg-Trace); RBC/HPF 21-50 HPF (0-3); Specific Gravity, Urine 1.012 (1.002-1.036); Squamous Epithelial 0-3 HPF (0-3); Urobilinogen Normal mg/dL (Less than 2); WBC/HPF 0-3 HPF (0-3)
[2024-08-18 15:35] LABS: Urine Culture Reflex No No
[2024-08-18 15:38] LABS: Amphetamine Not Detected (NotDetected); Barbiturates Screen Not Detected (NotDetected); Benzodiazepine Screen Detected (NotDetected); Cocaine Metabolite Screen Not Detected (NotDetected); Methadone Not Detected (NotDetected); Methamphetamine Not Detected (NotDetected); Opiate Screen Not Detected (NotDetected); Oxycodone Screen Not Detected (NotDetected); Phencyclidine (PCP) Not Detected (NotDetected); THC/Cannabinoid Screen Not Detected (NotDetected); Tricyclic Screen Detected (NotDetected)
== END 2024-08-18 19:20 ==
LOC: ERS 10:29
DX: F03.90 Unspecified dementia, unspecified severity, without behavioral disturbance, psychotic disturbance, mood disturbance, and anxiety (principal); E86.0 Dehydration; I11.0 Hypertensive heart disease with heart failure; I50.9 Heart failure, unspecified; E11.9 Type 2 diabetes mellitus without complications; Z86.73 Personal history of transient ischemic attack (TIA), and cerebral infarction without residual deficits
CPT/HCPCS: 70450; 71045; 80177; 80306; 80307; 81001; 82140; 82550; 83605; 83690; 84484; 93005; J2060; 36415; 51701; 80053; 84443; 85025; 96374